=== PATIENT | female | born 1950 | race Caucasian/White ===

== ENCOUNTER 2017-10-19 15:00 | Outpatient (RCR) | payer BC ==
[~2017-10-19 15:00] MED LIST: CALCIUM600 M1; KLOR CON; VITAMINS D; Z.0.ATORVASTATIN CA1; Z.0.FUROSEMIDE40 MG PO; [UNRECOGNIZED DRUG - OTHER]; [UNRECOGNIZED DRUG - OTHER] PO; [UNRECOGNIZED DRUG - REMARK] PO
== END 2017-10-20 ==
LOC: PT 15:00
PROVIDERS: ATTEND Specialist
DX: M17.0 Bilateral primary osteoarthritis of knee (principal); M70.62 Trochanteric bursitis, left hip; M70.61 Trochanteric bursitis, right hip; R26.2 Difficulty in walking, not elsewhere classified; M62.81 Muscle weakness (generalized)

== ENCOUNTER 2017-10-28 15:00 | Outpatient (RCR) | payer BC | END 2017-11-17 | LOC: PT 15:00 | PROVIDERS: ATTEND Specialist | DX: M17.0 Bilateral primary osteoarthritis of knee (principal); M70.62 Trochanteric bursitis, left hip; M70.61 Trochanteric bursitis, right hip; M62.81 Muscle weakness (generalized); R26.2 Difficulty in walking, not elsewhere classified | CPT/HCPCS: 97139 ==